=== PATIENT | male | born 1975 | race African-American/Black ===

== ENCOUNTER 2021-04-29 14:49 | Emergency (ER) | payer OTHER ==
[~2021-04-29] VITALS: Ht 182.9 cm; Wt 72.6 kg
[2021-04-29] MEDS ORDERED: CIPRO500 MG PO (17:25)
== END 2021-04-29 18:07 | disposition home or self-care (01) ==
LOC: ER 14:49
DX: S01.82XA Laceration with foreign body of other part of head, initial encounter (principal); S61.223A Laceration with foreign body of left middle finger without damage to nail, initial encounter; R00.1 Bradycardia, unspecified; W05.1XXA Fall from non-moving nonmotorized scooter, initial encounter; Y93.89 Activity, other specified; Y92.488 Other paved roadways as the place of occurrence of the external cause; Y99.8 Other external cause status